=== PATIENT | female | born 1950 | race Two or more races ===

== ENCOUNTER 2023-03-08 12:36 | Emergency (ER) | payer OTHER ==
[~2023-03-08] VITALS: Ht 154.9 cm; Wt 62.6 kg
[~2023-03-08 12:36] MED LIST: NABUMETONE500 MG PO; PERCOCET 5/3251 TAB PO
[2023-03-08] MEDS ORDERED: XARELTO15 MG (13:03)
[2023-03-08] MEDS ORDERED: AVAPRO300 MG PO (13:03)
[2023-03-08] MEDS ORDERED: AMLODIPINE-OLM1 EAC2 (13:04)
[2023-03-08 17:27] LABS: MEAN CELL VOLUME 95.6 fL (80.00-100.00); MEAN CORPUSCULAR HEMOGLOBIN 32.6 pg (27.00-32.0); MEAN CORPUSCULAR HGB CONC 34.1 g/dl (32.0-36.0); RED CELL DISTRIBUTION WIDTH 13.6 % (11.5-14.5)
[2023-03-08 17:42] LABS: CREATININE SERUM 0.78 mg/dL (0.55-1.02); GFR 72.6; POTASSIUM 3.92 mEq/L (3.5-5.1)
[2023-03-08 18:38] LABS: PLATELET COUNT 83 K/uL (150-450)
== END 2023-03-08 19:00 | disposition home or self-care (01) ==
LOC: ER 12:36
PROVIDERS: General Practice
DX: I82.491 Acute embolism and thrombosis of other specified deep vein of right lower extremity (principal); I10 Essential (primary) hypertension; Z88.2 Allergy status to sulfonamides; Z88.0 Allergy status to penicillin